=== PATIENT | male | born 1945 | race Caucasian/White ===

== ENCOUNTER 2021-03-14 12:42 | Emergency (ER) | payer MEDICARE, OTHER ==
[~2021-03-14 12:42] MED LIST: CYMBALTA60 MG PO; DULOXETINE HCL30 MG PO; GABAPENTIN600 MG PO; NORCO 5/3251 EACH PO
[2021-03-14 15:22] LABS: BILIRUBIN NEGATIVE (NEGATIVE); BLOOD 1+ Ery/uL (NEGATIVE); CLARITY CLEAR (CLEAR); COLOR YELLOW (YELLOW); GLUCOSE (U) NORMAL (NORMAL); LEUKOCYTES NEGATIVE Leu/uL (NEGATIVE); NITRITE NEGATIVE (NEGATIVE); PROTEIN 2+ mg/dL (NEGATIVE); SPECIFIC GRAVITY 1.025 (1.001-1.030); UROBILINOGEN >=8.0 mg/dL (0.2-1.0); pH 6.5 (5.0-9.0)
[2021-03-14 16:09] LABS: BACTERIA TRACE
[2021-03-14] MEDS ORDERED: KLOR-CON M2020 MEQ PO (16:37)
== END 2021-03-14 16:50 | disposition home or self-care (01) ==
LOC: FER 12:42
PROVIDERS: Nurse Practitioner Family
DX: E87.6 Hypokalemia (principal); I51.9 Heart disease, unspecified; Z79.82 Long term (current) use of aspirin; Z79.899 Other long term (current) drug therapy; Z95.5 Presence of coronary angioplasty implant and graft
CPT/HCPCS: 81001; 99283; J7040

== ENCOUNTER 2021-03-22 08:32 | Emergency (ER) | payer MEDICARE, OTHER ==
[~2021-03-22 08:32] MED LIST changes: +KLOR-CON M2020 MEQ PO
[2021-03-22 09:26] LABS: BASOPHIL 0.2 % (0-2); EOSINOPHIL 0.2 % (0-7); HGB 12.1 g/dl (13.2-18.0); LYMPHOCYTE 11.5 % (15-48); MCH 30.8 pg (25.0-31.0); MCHC 34.6 g/dL (32.0-36.0); MCV 89.1 fL (78.0-100.0); MONOCYTE 9.2 % (0-12); MPV 9.9 fL (6.0-9.5); NEUTROPHIL 78.5 % (41-80); NRBC 0; PLT 211 K/uL (150-400); RBC 3.93 M/uL (4.70-6.00); RDW 13.1 % (11.5-14.0); WBC 9.4 K/uL (4.0-10.5)
[2021-03-22 09:43] LABS: ALBUMIN 2.9 g/dL (3.4-5.0); ALKALINE PHOSHATASE 121 U/L (46-116); ALT 36 U/L (16-63); AST 31 U/L (15-37); BILIRUBIN - TOTAL 1.7 mg/dL (0.2-1.0); BUN 27 mg/dL (7-18); BUN/CREAT RATIO (CALC) 32.1 RATIO; CHLORIDE 93 mmol/L (98-107); CO2 (BICARBONATE) 34 mmol/L (21-32); CREATININE 0.84 mg/dL (0.67-1.17); GLOBULIN (CALCULATION) 4.5 g/dL; GLUCOSE 116 mg/dL (74-106); POTASSIUM 2.7 mmol/L (3.5-5.1); TOTAL PROTEIN 7.4 g/dL (6.4-8.2)
[2021-03-22 11:39] LABS: BILIRUBIN 1+ mg/dL (NEGATIVE); BLOOD 2+ Ery/uL (NEGATIVE); CLARITY CLEAR (CLEAR); COLOR YELLOW (YELLOW); GLUCOSE (U) NORMAL (NORMAL); LEUKOCYTES NEGATIVE Leu/uL (NEGATIVE); NITRITE NEGATIVE (NEGATIVE); PROTEIN 2+ mg/dL (NEGATIVE); SPECIFIC GRAVITY >=1.030 (1.001-1.030); pH 5.5 (5.0-9.0)
[2021-03-22 11:41] LABS: ECSTASY (MDMA) NEGATIVE (NEGATIVE); MARIJUANA (THC) NEGATIVE (NEGATIVE)
[2021-03-22 11:42] LABS: AMPHETAMINES NEGATIVE (NEGATIVE); BARBITURATES NEGATIVE (NEGATIVE); METHADONE NEGATIVE (NEGATIVE); OPIATES NEGATIVE (NEGATIVE); OXYCODONE NEGATIVE (NEGATIVE)
[2021-03-22 11:50] LABS: BACTERIA 1+
[2021-03-22 11:51] LABS: AMORPHOUS URATES CRYSTALS MODERATE
== END 2021-03-22 16:03 | disposition home or self-care (01) ==
LOC: FER 08:32
PROVIDERS: Emergency Medicine
DX: R44.3 Hallucinations, unspecified (principal); E87.6 Hypokalemia; I50.9 Heart failure, unspecified; J44.9 Chronic obstructive pulmonary disease, unspecified; F17.200 Nicotine dependence, unspecified, uncomplicated; Z79.82 Long term (current) use of aspirin; Z79.899 Other long term (current) drug therapy
CPT/HCPCS: 36415; 70450; 71045; 80053; 80305; 81001; 85025; G0480

== ENCOUNTER 2021-04-03 10:56 | Emergency (ER) | payer MEDICARE, OTHER ==
[2021-04-03 11:51] LABS: BILIRUBIN NEGATIVE (NEGATIVE); BLOOD 1+ Ery/uL (NEGATIVE); CLARITY CLEAR (CLEAR); COLOR YELLOW (YELLOW); GLUCOSE (U) NORMAL (NORMAL); LEUKOCYTES NEGATIVE Leu/uL (NEGATIVE); NITRITE NEGATIVE (NEGATIVE); PROTEIN NEGATIVE (NEGATIVE); SPECIFIC GRAVITY 1.015 (1.001-1.030)
[2021-04-03 12:28] LABS: URINARY WBC RARE
[2021-04-03] MEDS ORDERED: MACRODANTIN50 MG PO (12:52)
== END 2021-04-03 13:20 | disposition home or self-care (01) ==
LOC: FER 10:56
PROVIDERS: Emergency Medicine
DX: N40.1 Benign prostatic hyperplasia with lower urinary tract symptoms (principal); R33.8 Other retention of urine; I25.2 Old myocardial infarction; F17.210 Nicotine dependence, cigarettes, uncomplicated; Z87.19 Personal history of other diseases of the digestive system
CPT/HCPCS: 81001; 87088

== ENCOUNTER 2021-04-04 22:36 | Emergency (ER) | payer MEDICARE, OTHER ==
[~2021-04-04 22:36] MED LIST changes: +MACRODANTIN50 MG PO
== END 2021-04-04 23:25 | disposition home or self-care (01) ==
LOC: FER 22:36
DX: T83.038A Leakage of other urinary catheter, initial encounter (principal); I10 Essential (primary) hypertension; J44.9 Chronic obstructive pulmonary disease, unspecified; Z95.1 Presence of aortocoronary bypass graft; Z79.01 Long term (current) use of anticoagulants; Z79.899 Other long term (current) drug therapy
CPT/HCPCS: 99283

== ENCOUNTER 2021-04-07 02:43 | Emergency (ER) | payer MEDICARE, OTHER | END 2021-04-07 05:00 | disposition home or self-care (01) | LOC: FER 02:43 | DX: T83.031A Leakage of indwelling urethral catheter, initial encounter (principal) | CPT/HCPCS: 87076; 87088; 87186 ==

== ENCOUNTER 2021-04-09 15:32 | Inpatient (IN) | payer MEDICARE, OTHER ==
[~2021-04-09] VITALS: Ht 183 cm; Wt 79.5 kg
[2021-04-09 16:47] LABS: BASOPHIL 0.2 % (0-2); EOSINOPHIL 0.2 % (0-7); HCT 31.2 % (42.0-52.0); HGB 10.8 g/dl (13.2-18.0); LYMPHOCYTE 6.9 % (15-48); MCHC 34.6 g/dL (32.0-36.0); MCV 89.7 fL (78.0-100.0); MPV 9.6 fL (6.0-9.5); NEUTROPHIL 85.8 % (41-80); NRBC 0; PLT 201 K/uL (150-400); RBC 3.48 M/uL (4.70-6.00); RDW 14.4 % (11.5-14.0); WBC 17.4 K/uL (4.0-10.5)
[2021-04-09 16:49] LABS: BILIRUBIN NEGATIVE (NEGATIVE); BLOOD 3+ Ery/uL (NEGATIVE); CLARITY HAZY (CLEAR); COLOR YELLOW (YELLOW); GLUCOSE (U) NORMAL (NORMAL); LEUKOCYTES 2+ Leu/uL (NEGATIVE); NITRITE NEGATIVE (NEGATIVE); PROTEIN 2+ mg/dL (NEGATIVE); SPECIFIC GRAVITY 1.015 (1.001-1.030); UROBILINOGEN >=8.0 mg/dL (0.2-1.0)
[2021-04-09 16:56] LABS: ALBUMIN 2.8 g/dL (3.4-5.0); BILIRUBIN - TOTAL 1.2 mg/dL (0.2-1.0); BUN/CREAT RATIO (CALC) 14.1 RATIO; CREATININE 0.92 mg/dL (0.67-1.17); GLOBULIN (CALCULATION) 3.5 g/dL; POTASSIUM 3.6 mmol/L (3.5-5.1); TOTAL PROTEIN 6.3 g/dL (6.4-8.2)
[2021-04-09 16:56] LABS: BACTERIA 3+; SQUAMOUS EPITHELIAL CELLS RARE; URINARY RBC 20-50; URINARY WBC TNTC
[2021-04-09 17:05] LABS: PRO-BNP 6765 pg/mL (<450)
[2021-04-09 17:11] LABS: LACTIC ACID 2.1 mmol/L (0.4-1.9)
[2021-04-09] MEDS ORDERED: NORVASC5 MG PO (23:04)
[2021-04-09] MEDS ORDERED: LISINOPRIL10 MG PO (23:04)
[2021-04-09] MEDS ORDERED: LIPITOR40 MG PO (23:05)
[2021-04-09] MEDS ORDERED: TOPROL XL 50 MG50 MG PO (23:05)
[2021-04-09] MEDS ORDERED: ASPIRIN EC81 MG PO (23:06)
[2021-04-10 06:13] LABS: BASOPHIL 0.1 % (0-2); EOSINOPHIL 0.3 % (0-7); HCT 27.4 % (42.0-52.0); HGB 9.2 g/dl (13.2-18.0); LYMPHOCYTE 6.1 % (15-48); MCH 30.3 pg (25.0-31.0); MCHC 33.6 g/dL (32.0-36.0); MCV 90.1 fL (78.0-100.0); MONOCYTE 6.5 % (0-12); MPV 9.7 fL (6.0-9.5); NRBC 0; PLT 153 K/uL (150-400); RBC 3.04 M/uL (4.70-6.00); RDW 14.4 % (11.5-14.0); WBC 13.1 K/uL (4.0-10.5)
[2021-04-10 06:23] LABS: ALBUMIN 2.3 g/dL (3.4-5.0); BILIRUBIN - TOTAL 1.3 mg/dL (0.2-1.0); BUN/CREAT RATIO (CALC) 15.4 RATIO; CREATININE 0.91 mg/dL (0.67-1.17); MAGNESIUM 1.3 mg/dL (1.8-2.4); PHOSPHORUS 3.2 mg/dL (2.6-4.7); POTASSIUM 3.5 mmol/L (3.5-5.1); TOTAL PROTEIN 5.3 g/dL (6.4-8.2)
[2021-04-10 06:33] LABS: CKMB 2.8 ng/mL (0.0-3.6)
[2021-04-10 17:35] LABS: CREATININE 0.85 mg/dL (0.67-1.17); POTASSIUM 3.2 mmol/L (3.5-5.1)
[2021-04-11 06:20] LABS: HCT 24.7 % (42.0-52.0); HGB 8.3 g/dl (13.2-18.0); MCH 30.6 pg (25.0-31.0); MCHC 33.6 g/dL (32.0-36.0); MCV 91.1 fL (78.0-100.0); RBC 2.71 M/uL (4.70-6.00); RDW 14.5 % (11.5-14.0); WBC 9.5 K/uL (4.0-10.5)
[2021-04-11 06:34] LABS: INR 1.57 (0.9-1.2)
[2021-04-11 06:44] LABS: CREATININE 0.8 mg/dL (0.67-1.17); MAGNESIUM 1.8 mg/dL (1.8-2.4); POTASSIUM 3.9 mmol/L (3.5-5.1)
[2021-04-11 14:43] LABS: BILIRUBIN NEGATIVE (NEGATIVE); BLOOD TRACE-INTACT Ery/uL (NEGATIVE); CLARITY CLEAR (CLEAR); COLOR YELLOW (YELLOW); GLUCOSE (U) NORMAL (NORMAL); LEUKOCYTES 1+ Leu/uL (NEGATIVE); NITRITE NEGATIVE (NEGATIVE); PROTEIN NEGATIVE (NEGATIVE); SPECIFIC GRAVITY 1.015 (1.001-1.030); UROBILINOGEN 0.2 mg/dL (0.2-1.0)
[2021-04-11 14:48] LABS: URINARY RBC RARE
[2021-04-11 17:54] LABS: HCT 24.7 % (42.0-52.0)
[2021-04-12 03:47] LABS: BASOPHIL 0.1 % (0-2); HCT 23.2 % (42.0-52.0); HGB 7.8 g/dl (13.2-18.0); LYMPHOCYTE 14.1 % (15-48); MCH 30.6 pg (25.0-31.0); MCHC 33.6 g/dL (32.0-36.0); MONOCYTE 10.2 % (0-12); MPV 9.9 fL (6.0-9.5); NEUTROPHIL 73.8 % (41-80); NRBC 0; PLT 150 K/uL (150-400); RBC 2.55 M/uL (4.70-6.00); RDW 14.2 % (11.5-14.0); WBC 9.8 K/uL (4.0-10.5)
[2021-04-12 04:04] LABS: BUN/CREAT RATIO (CALC) 22.8 RATIO; CREATININE 0.79 mg/dL (0.67-1.17); MAGNESIUM 1.5 mg/dL (1.8-2.4)
[2021-04-13 06:00] LABS: BASOPHIL 0.1 % (0-2); EOSINOPHIL 1.8 % (0-7); HCT 22.2 % (42.0-52.0); HGB 7.6 g/dl (13.2-18.0); LYMPHOCYTE 14.9 % (15-48); MCH 30.8 pg (25.0-31.0); MCHC 34.2 g/dL (32.0-36.0); MCV 89.9 fL (78.0-100.0); MONOCYTE 9.9 % (0-12); MPV 9.9 fL (6.0-9.5); NEUTROPHIL 72.8 % (41-80); NRBC 0; PLT 144 K/uL (150-400); RBC 2.47 M/uL (4.70-6.00); RDW 14.2 % (11.5-14.0); WBC 8.7 K/uL (4.0-10.5)
[2021-04-13 06:17] LABS: BUN/CREAT RATIO (CALC) 23.3 RATIO; CREATININE 0.73 mg/dL (0.67-1.17); MAGNESIUM 1.6 mg/dL (1.8-2.4); POTASSIUM 4.2 mmol/L (3.5-5.1)
[2021-04-14 04:44] LABS: BASOPHIL 0.1 % (0-2); EOSINOPHIL 1.2 % (0-7); HCT 23.6 % (42.0-52.0); LYMPHOCYTE 16.7 % (15-48); MCH 30.1 pg (25.0-31.0); MCHC 33.9 g/dL (32.0-36.0); MCV 88.7 fL (78.0-100.0); MONOCYTE 11.3 % (0-12); MPV 10.1 fL (6.0-9.5); NEUTROPHIL 69.9 % (41-80); NRBC 0; PLT 133 K/uL (150-400); RBC 2.66 M/uL (4.70-6.00); RDW 14.1 % (11.5-14.0); WBC 7.5 K/uL (4.0-10.5)
[2021-04-14 05:09] LABS: BUN/CREAT RATIO (CALC) 18.3 RATIO; CREATININE 0.71 mg/dL (0.67-1.17)
[2021-04-15 05:01] LABS: BUN/CREAT RATIO (CALC) 18.7 RATIO; CREATININE 0.75 mg/dL (0.67-1.17)
[2021-04-15 05:08] LABS: BASOPHIL 0.2 % (0-2); EOSINOPHIL 1.1 % (0-7); HCT 22.1 % (42.0-52.0); HGB 7.2 g/dl (13.2-18.0); LYMPHOCYTE 18.5 % (15-48); MCH 29.8 pg (25.0-31.0); MCHC 32.6 g/dL (32.0-36.0); MCV 91.3 fL (78.0-100.0); MPV 9.9 fL (6.0-9.5); NEUTROPHIL 71.2 % (41-80); NRBC 0; PLT 187 K/uL (150-400); RBC 2.42 M/uL (4.70-6.00); RDW 14.1 % (11.5-14.0)
[2021-04-15 05:23] LABS: WBC 8.9 K/uL (4.0-10.5)
[2021-04-16 06:07] LABS: BASOPHIL 0.2 % (0-2); EOSINOPHIL 0.3 % (0-7); HCT 26.3 % (42.0-52.0); HGB 9.1 g/dl (13.2-18.0); LYMPHOCYTE 12.2 % (15-48); MCHC 34.6 g/dL (32.0-36.0); MCV 89.5 fL (78.0-100.0); MONOCYTE 8.2 % (0-12); MPV 9.6 fL (6.0-9.5); NRBC 0; PLT 249 K/uL (150-400); RBC 2.94 M/uL (4.70-6.00); RDW 14.2 % (11.5-14.0); WBC 13.1 K/uL (4.0-10.5)
[2021-04-16 06:10] LABS: BUN/CREAT RATIO (CALC) 15.5 RATIO; CREATININE 0.84 mg/dL (0.67-1.17)
[2021-04-17 06:22] LABS: BASOPHIL 0.2 % (0-2); EOSINOPHIL 0.3 % (0-7); HCT 21.9 % (42.0-52.0); HGB 7.2 g/dl (13.2-18.0); LYMPHOCYTE 13.1 % (15-48); MCH 30.3 pg (25.0-31.0); MCHC 32.9 g/dL (32.0-36.0); MONOCYTE 8.5 % (0-12); MPV 9.5 fL (6.0-9.5); NEUTROPHIL 76.8 % (41-80); NRBC 0; PLT 225 K/uL (150-400); RBC 2.38 M/uL (4.70-6.00); WBC 9.3 K/uL (4.0-10.5)
[2021-04-17 06:36] LABS: BUN/CREAT RATIO (CALC) 18.8 RATIO; CREATININE 1.01 mg/dL (0.67-1.17); POTASSIUM 4.7 mmol/L (3.5-5.1)
[2021-04-18 06:13] LABS: BASOPHIL 0.2 % (0-2); EOSINOPHIL 0.5 % (0-7); HCT 25.5 % (42.0-52.0); HGB 8.4 g/dl (13.2-18.0); LYMPHOCYTE 11.6 % (15-48); MCH 30.5 pg (25.0-31.0); MCHC 32.9 g/dL (32.0-36.0); MCV 92.7 fL (78.0-100.0); MONOCYTE 7.1 % (0-12); NEUTROPHIL 79.4 % (41-80); NRBC 0; PLT 234 K/uL (150-400); RBC 2.75 M/uL (4.70-6.00); RDW 15.3 % (11.5-14.0); WBC 8.2 K/uL (4.0-10.5)
[2021-04-18 06:32] LABS: BUN/CREAT RATIO (CALC) 18.1 RATIO; CREATININE 0.94 mg/dL (0.67-1.17); POTASSIUM 4.2 mmol/L (3.5-5.1)
[2021-04-18] MEDS ORDERED: LANOXIN 0.120.125 MG PO (15:40)
[2021-04-18] MEDS ORDERED: XARELTO10 MG PO (15:40)
[2021-04-18] MEDS ORDERED: LOPRESSOR50 MG PO (15:40)
[2021-04-18] MEDS ORDERED: HYDROCODON-ACE1 EAC6 PO (15:40)
[2021-04-18] MEDS ORDERED: FLOMAX0.4 MG PO (15:50)
== END 2021-04-18 19:13 | DRG 956 ==
LOC: FER 15:32 → FICU 21:07 → FMS 21:07 → FICU 04-11 17:19 → FTCU 04-16 21:09
PROVIDERS: Internal Medicine; Internal Medicine Cardiovascular Disease; Legal Medicine; Nurse Practitioner; Nurse Practitioner Family; ADMIT Allergy & Immunology Allergy
PROC: 0QS606Z Reposition Right Upper Femur with Intramedullary Internal Fixation Device, Open Approach (ICD-10-PCS; 2021-04-11)
PROC: 30233N1 Transfusion of Nonautologous Red Blood Cells into Peripheral Vein, Percutaneous Approach (ICD-10-PCS; principal; 2021-04-11 13:00)
PROC: 30233N1 Transfusion of Nonautologous Red Blood Cells into Peripheral Vein, Percutaneous Approach (ICD-10-PCS; 2021-04-12)
PROC: 30233N1 Transfusion of Nonautologous Red Blood Cells into Peripheral Vein, Percutaneous Approach (ICD-10-PCS; 2021-04-13)
PROC: 30233N1 Transfusion of Nonautologous Red Blood Cells into Peripheral Vein, Percutaneous Approach (ICD-10-PCS; 2021-04-15)
PROC: 30233N1 Transfusion of Nonautologous Red Blood Cells into Peripheral Vein, Percutaneous Approach (ICD-10-PCS; 2021-04-17)
DX: S72.141A Displaced intertrochanteric fracture of right femur, initial encounter for closed fracture (principal); S32.511A Fracture of superior rim of right pubis, initial encounter for closed fracture; R57.1 Hypovolemic shock; I21.4 Non-ST elevation (NSTEMI) myocardial infarction; S32.592A Other specified fracture of left pubis, initial encounter for closed fracture; N30.00 Acute cystitis without hematuria; N30.01 Acute cystitis with hematuria; I48.20 Chronic atrial fibrillation, unspecified; E87.1 Hypo-osmolality and hyponatremia; D62 Acute posthemorrhagic anemia; R41.0 Disorientation, unspecified; W01.0XXA Fall on same level from slipping, tripping and stumbling without subsequent striking against object, initial encounter; F17.210 Nicotine dependence, cigarettes, uncomplicated; I25.10 Atherosclerotic heart disease of native coronary artery without angina pectoris; R00.0 Tachycardia, unspecified; K21.9 Gastro-esophageal reflux disease without esophagitis; J44.9 Chronic obstructive pulmonary disease, unspecified; B96.1 Klebsiella pneumoniae [K. pneumoniae] as the cause of diseases classified elsewhere; I10 Essential (primary) hypertension; I27.20 Pulmonary hypertension, unspecified; F03.90 Unspecified dementia, unspecified severity, without behavioral disturbance, psychotic disturbance, mood disturbance, and anxiety; D50.9 Iron deficiency anemia, unspecified; R33.9 Retention of urine, unspecified; N40.0 Benign prostatic hyperplasia without lower urinary tract symptoms; I48.91 Unspecified atrial fibrillation; I95.9 Hypotension, unspecified; Z95.5 Presence of coronary angioplasty implant and graft; Z91.81 History of falling; Y92.9 Unspecified place or not applicable; Z79.01 Long term (current) use of anticoagulants; Z95.1 Presence of aortocoronary bypass graft; Z82.49 Family history of ischemic heart disease and other diseases of the circulatory system; Z82.61 Family history of arthritis
CPT/HCPCS: 36415; 36430; 71045; 72192; 73501; 73502; 73560; 73590; 73700; 76000; 80048; 80053; 80162; 81001; 82553; 83540; 83605; 83735; 83880; 84100; 84145; 84484; 85014; 85018; 85025; 85610; 86850; 86900; 86901; 86922; 87040; 87076; 87088; 87186; 93005; 94010; 94640; 94760; 94761; 94762; 97110; 97161; 97166; 97530; 97530-GP; C1713; C9113; J0696; J0697; J1160; J1170; J1200; J1940; J2270; J2370; J2405; J2543; J2704; J2795; J2916; J3010; J3475; J7030; J7040; J7050; J7120; P9016; U0002

== ENCOUNTER 2021-09-27 15:44 | Emergency (ER) | payer MEDICARE, OTHER ==
[~2021-09-27 15:44] MED LIST changes: +ASPIRIN EC81 MG PO; +FLOMAX0.4 MG PO; +HYDROCODON-ACE1 EAC6 PO; +LANOXIN 0.120.125 MG PO; +LIPITOR40 MG PO; +LISINOPRIL10 MG PO; +LOPRESSOR50 MG PO; +NORVASC5 MG PO; +TOPROL XL 50 MG50 MG PO; +XARELTO10 MG PO
[2021-09-27 17:23] LABS: BASOPHIL 0.3 % (0-2); EOSINOPHIL 0.2 % (0-7); HCT 37.3 % (42.0-52.0); HGB 11.7 g/dl (13.2-18.0); LYMPHOCYTE 12.2 % (15-48); MCH 27.7 pg (25.0-31.0); MCHC 31.4 g/dL (32.0-36.0); MCV 88.4 fL (78.0-100.0); MPV 8.9 fL (6.0-9.5); NEUTROPHIL 78.8 % (41-80); NRBC 0; PLT 318 K/uL (150-400); RBC 4.22 M/uL (4.70-6.00); RDW 14.6 % (11.5-14.0); WBC 13.4 K/uL (4.0-10.5)
[2021-09-27 17:47] LABS: BUN/CREAT RATIO (CALC) 12.6 RATIO; CREATININE 0.95 mg/dL (0.67-1.17); POTASSIUM 3.4 mmol/L (3.5-5.1)
[2021-09-27 18:41] LABS: CORONAVIRUS 2019 SARS-COV-2 NEGATIVE (NEGATIVE); INFLUENZA A NAA NEGATIVE (NEGATIVE)
== END 2021-09-27 20:17 | disposition other institution (70) ==
LOC: FER 15:44
PROVIDERS: Emergency Medicine
DX: R33.9 Retention of urine, unspecified (principal); I10 Essential (primary) hypertension; Z20.822 Contact with and (suspected) exposure to COVID-19
CPT/HCPCS: 36415; 80048; 85025; 99284; J1170; U0002

== ENCOUNTER 2022-01-11 05:32 | Inpatient (IN) | payer MEDICARE, OTHER ==
[~2022-01-11] VITALS: Ht 183 cm; Wt 73.1 kg
[~2022-01-11 05:32] MED LIST changes: +CEPHALEXIN500 MG PO; +FEROSUL325 MG PO; +LASIX20 MG PO; +LEVAQUIN500 MG PO; +MEMANTINE HCL10 MG PO; +MIRTAZAPINE30 MG PO; +POTASSIUM CHLO10 ME1 PO; +TAMSULOSIN HCL0.4 MG PO; +XARELTO20 MG PO
[2022-01-11 06:42] LABS: INR 1.37 (0.9-1.2); PROTHROMBIN TIME 16.2 SECONDS (11.8-13.4); PTT 38.3 SECONDS (24.4-34.7)
[2022-01-11 07:30] LABS: BASOPHIL 0.3 % (0-2); EOSINOPHIL 0.7 % (0-7); HGB 11.7 g/dl (13.2-18.0); LYMPHOCYTE 18.2 % (15-48); MCH 29.5 pg (25.0-31.0); MCHC 32.5 g/dL (32.0-36.0); MCV 90.7 fL (78.0-100.0); MPV 9.4 fL (6.0-9.5); NEUTROPHIL 72.4 % (41-80); NRBC 0; PLT 247 K/uL (150-400); RBC 3.97 M/uL (4.70-6.00); RDW 13.5 % (11.5-14.0)
[2022-01-11 11:33] LABS: CREATININE 0.85 mg/dL (0.67-1.17); POTASSIUM 4.1 mmol/L (3.5-5.1)
[2022-01-11 11:34] LABS: ALBUMIN 2.4 g/dL (3.4-5.0); BILIRUBIN - TOTAL 0.4 mg/dL (0.2-1.0); GLOBULIN (CALCULATION) 4.6 g/dL; MAGNESIUM 2.2 mg/dL (1.8-2.4)
[2022-01-11 22:51] LABS: BILIRUBIN NEGATIVE (NEGATIVE); BLOOD TRACE-INTACT Ery/uL (NEGATIVE); CLARITY CLEAR (CLEAR); COLOR YELLOW (YELLOW); GLUCOSE (U) NORMAL (NORMAL); LEUKOCYTES NEGATIVE Leu/uL (NEGATIVE); NITRITE NEGATIVE (NEGATIVE); PROTEIN TRACE (LOW) mg/dL (NEGATIVE); SPECIFIC GRAVITY >=1.030 (1.001-1.030); UROBILINOGEN 0.2 mg/dL (0.2-1.0); pH 5.5 (5.0-9.0)
[2022-01-11 23:06] LABS: RENAL EPITHELIAL CELLS RARE; TRANSITIONAL EPITHELIAL CELLS RARE; URINARY WBC RARE
[2022-01-11 23:07] LABS: BACTERIA 1+; URINARY RBC RARE
[2022-01-12 03:38] LABS: BASOPHIL 0 % (0-2); EOSINOPHIL 0 % (0-7); HCT 26.4 % (42.0-52.0); HGB 8.3 g/dl (13.2-18.0); LYMPHOCYTE 11.3 % (15-48); MCH 29.7 pg (25.0-31.0); MCHC 31.4 g/dL (32.0-36.0); MCV 94.6 fL (78.0-100.0); MONOCYTE 7.2 % (0-12); MPV 9.1 fL (6.0-9.5); NRBC 0; PLT 149 K/uL (150-400); RBC 2.79 M/uL (4.70-6.00); RDW 13.3 % (11.5-14.0)
[2022-01-12 04:02] LABS: BUN/CREAT RATIO (CALC) 15.2 RATIO; CREATININE 0.92 mg/dL (0.67-1.17); POTASSIUM 4.7 mmol/L (3.5-5.1)
[2022-01-13 05:49] LABS: BASOPHIL 0.2 % (0-2); EOSINOPHIL 0.3 % (0-7); HCT 25.1 % (42.0-52.0); HGB 7.9 g/dl (13.2-18.0); MCH 29.9 pg (25.0-31.0); MCHC 31.5 g/dL (32.0-36.0); MCV 95.1 fL (78.0-100.0); MONOCYTE 8.2 % (0-12); MPV 9.4 fL (6.0-9.5); NEUTROPHIL 69.1 % (41-80); NRBC 0; PLT 182 K/uL (150-400); RBC 2.64 M/uL (4.70-6.00); RDW 13.8 % (11.5-14.0); WBC 6.6 K/uL (4.0-10.5)
[2022-01-13 06:17] LABS: BUN/CREAT RATIO (CALC) 15.7 RATIO; CREATININE 0.89 mg/dL (0.67-1.17); POTASSIUM 4.1 mmol/L (3.5-5.1)
[2022-01-13] MEDS ORDERED: AMIODARONE HCL200 MG PO ×2 (09:04)
[2022-01-13] MEDS ORDERED: PRINIVIL10 MG PO (09:04)
[2022-01-13] MEDS ORDERED: OXY-IR 5MG5 MG PO (09:04)
== END 2022-01-13 12:25 | DRG 988 ==
LOC: FAS 05:32 → FOR 07:00 → FICU 09:49 → FOR 10:30 → FTCU 01-12 12:29
PROVIDERS: Allergy & Immunology Allergy; Legal Medicine; Nurse Practitioner Adult Health; ADMIT Internal Medicine
PROC: 0QP604Z Removal of Internal Fixation Device from Right Upper Femur, Open Approach (ICD-10-PCS; principal; 2022-01-11 07:00)
DX: I47.2 Ventricular tachycardia (principal); S72.141K Displaced intertrochanteric fracture of right femur, subsequent encounter for closed fracture with nonunion; E87.2 Acidosis; I48.20 Chronic atrial fibrillation, unspecified; J44.9 Chronic obstructive pulmonary disease, unspecified; I25.10 Atherosclerotic heart disease of native coronary artery without angina pectoris; I10 Essential (primary) hypertension; K21.9 Gastro-esophageal reflux disease without esophagitis; E78.5 Hyperlipidemia, unspecified; D64.9 Anemia, unspecified; Z79.01 Long term (current) use of anticoagulants; Z95.5 Presence of coronary angioplasty implant and graft; Z79.899 Other long term (current) drug therapy; Z95.1 Presence of aortocoronary bypass graft; Z99.3 Dependence on wheelchair; Z90.49 Acquired absence of other specified parts of digestive tract; Z98.42 Cataract extraction status, left eye; Z87.891 Personal history of nicotine dependence
CPT/HCPCS: 36415; 36600; 71045; 73501; 80048; 80053; 81001; 82728; 82803; 83540; 83605; 83735; 84484; 85025; 85610; 85730; 86850; 86900; 86901; 87070; 87075; 87205; 93005; 94002; 97162; 97167; 97530-GP; J0171; J0282; J0697; J1100; J1170; J1650; J1885; J2250; J2270; J2370; J2405; J2704; J2795; J3010; J3475; J7030; J7060; J7120; U0002

== ENCOUNTER 2022-02-17 08:58 | Emergency (ER) | payer MEDICARE, OTHER ==
[~2022-02-17 08:58] MED LIST changes: +AMIODARONE HCL200 MG PO; +OXY-IR 5MG5 MG PO; +PRINIVIL10 MG PO
[2022-02-17 09:44] LABS: BASOPHIL 0.5 % (0-2); EOSINOPHIL 2.7 % (0-7); HCT 40.2 % (42.0-52.0); HGB 12.9 g/dl (13.2-18.0); LYMPHOCYTE 20.9 % (15-48); MCH 29.8 pg (25.0-31.0); MCHC 32.1 g/dL (32.0-36.0); MCV 92.8 fL (78.0-100.0); MONOCYTE 7.2 % (0-12); MPV 8.9 fL (6.0-9.5); NEUTROPHIL 68.4 % (41-80); NRBC 0; PLT 236 K/uL (150-400); RBC 4.33 M/uL (4.70-6.00); RDW 13.8 % (11.5-14.0); WBC 7.4 K/uL (4.0-10.5)
[2022-02-17 09:48] LABS: INR 2.1 (0.9-1.2); PROTHROMBIN TIME 22.7 SECONDS (11.8-13.4); PTT 47.5 SECONDS (24.4-34.7)
[2022-02-17 09:50] LABS: BILIRUBIN NEGATIVE (NEGATIVE); BLOOD 1+ Ery/uL (NEGATIVE); CLARITY CLEAR (CLEAR); COLOR YELLOW (YELLOW); GLUCOSE (U) NORMAL (NORMAL); LEUKOCYTES NEGATIVE Leu/uL (NEGATIVE); NITRITE NEGATIVE (NEGATIVE); PROTEIN NEGATIVE (NEGATIVE); UROBILINOGEN 0.2 mg/dL (0.2-1.0)
[2022-02-17 10:04] LABS: TRANSITIONAL EPITHELIAL CELLS RARE; URINARY WBC RARE
[2022-02-17 10:11] LABS: ALBUMIN 3.6 g/dL (3.4-5.0); BILIRUBIN - TOTAL 0.4 mg/dL (0.2-1.0); BUN/CREAT RATIO (CALC) 10.7 RATIO; CREATININE 1.12 mg/dL (0.67-1.17); GLOBULIN (CALCULATION) 4.5 g/dL; POTASSIUM 4.2 mmol/L (3.5-5.1); TOTAL PROTEIN 8.1 g/dL (6.4-8.2)
== END 2022-02-17 14:22 | disposition home or self-care (01) ==
LOC: FER 08:58
PROVIDERS: Emergency Medicine
DX: R07.89 Other chest pain (principal); I10 Essential (primary) hypertension; F17.210 Nicotine dependence, cigarettes, uncomplicated
CPT/HCPCS: 36415; 71045; 80053; 81001; 84484; 85025; 85610; 85730; 93005

== ENCOUNTER 2022-04-18 11:44 | Emergency (ER) | payer MEDICARE, OTHER | END 2022-04-18 14:55 | disposition home or self-care (01) | LOC: FER 11:44 | DX: L76.22 Postprocedural hemorrhage of skin and subcutaneous tissue following other procedure (principal); I25.2 Old myocardial infarction; I48.91 Unspecified atrial fibrillation; F17.210 Nicotine dependence, cigarettes, uncomplicated; Z96.641 Presence of right artificial hip joint; Z95.1 Presence of aortocoronary bypass graft; Z79.01 Long term (current) use of anticoagulants; Y83.1 Surgical operation with implant of artificial internal device as the cause of abnormal reaction of the patient, or of later complication, without mention of misadventure at the time of the procedure | CPT/HCPCS: 99283 ==